=== PATIENT | male | born 1995 | race African-American/Black ===

== ENCOUNTER 2018-05-25 06:49 | Inpatient (IN) ==
[~2018-05-25 06:49] MED LIST: EPINEPHRINE SYRINGE ONE; NS ONE; SODIUM BICARBONATE 8.4% ONE
[2018-05-25] MEDS ORDERED: EPINEPHRINE 4 MG in NS 250 ML IV SCH (07:00)
--- NOTE | 2018-05-25 07:25 | PROVIDER DOCUMENTATION ---
HPI-General Adult - General Stated Complaint: FULL ARREST Time Seen by Provider: 05/25/18 07:10 Source: family, EMS Allergies/Adverse Reactions: Patient Allergies Allergy/AdvReac Type Severity Reaction Status Date / Time No Known Allergies Allergy Verified 05/25/18 08:55 - History of Present Illness -Gen Adult Nature of Presenting Problems: Pt found after hanging himself, pt was last seen normal at 5:45a, taken down from the rope at 6a, CPR was started shortly thereafter, no pulses in the field , pt got 4 epi and bicarb in the field, pt given epi, bicarb and ca here, good glucose, got ROSC, skip airway replaced with 8-0 tube, pt placed in collar, pt started on epi drip, family spoken to, will admit to ICU Location of Pain/Injury: reports: none Pain Radiation: reports: no radiation Quality of Pain: reports: none Onset/Duration: reports: unsure Timing: reports: still present Context/Activities at Onset: reports: none Modifying Factors: improves with: nothing Associated Symptoms: reports: denies symptoms Similar Symptoms Previously?: No Recently seen or treated by another doctor?: No Review of Systems - Adult - REVIEW OF SYSTEMS - ADULT ROS:: unobtainable per condition (arrest, intubated) Constitutional: reports: see HPI Eyes: reports: see HPI Ears, Nose, Mouth & Throat: reports: see HPI Cardiovascular: reports: see HPI Respiratory: reports: see HPI Gastrointestinal: reports: see HPI Genitourinary: reports: see HPI Musculoskeletal: reports: see HPI Integumentary: reports: see HPI Neurological: reports: see HPI Psychiatric: reports: see HPI Endocrine: reports: see HPI Hematologic/Lymphatic: reports: see HPI Allergic/Immunologic: reports: see HPI Past History - Adult - PAST MEDICAL HISTORY-ADULT Review of Records: reports: Nursing Assessment Review Major Childhood Illnesses: reports: denies history Cardiovascular: reports: denies history Respiratory: reports: denies history Gastrointestinal: reports: denies history Obstetrical/Gynecological: reports: denies history Genitourinary: reports: denies history Musculoskeletal: reports: denies history Neurological: reports: denies history Endocrine/Immune: reports: denies history Other Conditions: reports: denies history - PRIOR SURGERIES/PROCEDURES Surgical/Procedure History: reports: none - IMMUNIZATION STATUS Childhood Immunizations: See Nurse Assessment Flu Vaccine: See Nurse Assessment - FAMILY HISTORY Family History: reviewed, not pertinent Physical Exam-General - PHYSICAL EXAM-ADULT Initial Vital Signs Reviewed: Yes - CONSTITUTIONAL General Appearance: severe distress - EYES Eyes: other (eye closed, pupils fixed and dilated) - HEAD, EARS, NOSE, MOUTH & THROAT HENMT: normocephalic/atraumatic - NECK Neck: normal inspection - RESPIRATORY Respiratory: chest non-tender, other (BS equal with bagging) - CARDIOVASCULAR Cardiovascular: normal peripheral pulses (ROSC achieved) - GASTROINTESTINAL (ABDOMEN) Abdominal Exam: normal bowel sounds - LYMPHATIC Lymphatic: no adenopathy - MUSCULOSKELETAL Back Exam: normal inspection Extremity: normal inspection - SKIN Integumentary: normal color - NEUROLOGIC Neurologic: other (unresponsive) - PSYCHIATRIC Psych/Mental Status: other (unresponsive) Progress - PLAN OF CARE/RESULTS Progress/Plan/Lab Results: Orders Category Date Time Status ABG [RESP] Stat Lab 05/25/18 07:18 Ordered CBC WITH ELECTRONIC DIFF [HEME] Stat Lab 05/25/18 07:12 Uncollected COMPREHENSIVE METABOLIC PANEL [CHEM] Stat Lab 05/25/18 07:12 Uncollected LACTATE, PLASMA [CHEM] Stat Lab 05/25/18 07:17 Uncollected LIPASE [CHEM] Stat Lab 05/25/18 07:17 Uncollected TROPONIN T Stat Lab 05/25/18 07:12 Uncollected 0.9% Sodium Chloride Inj [Ns] 250 ml Med 05/25/18 08:00 Active Epinephrine 4 mg IV As Directed Result Diagrams: 05/25/18 07:15 05/25/18 07:15 - CONSULTS/PCP/HOSPITALIST Notification #1 *Consult/PCP/Hospitalist*: Dr Sevilla Time Discussed: 09:00 Consult Disposition: Will see in ED (Dr Sevilla came to [facility] to see pt and spoke to family. Plan is to admit.) Departure - Departure Date of Disposition Decision: 05/25/18 Time of Disposition Decision: 09:01 DIAGNOSIS: Suicide attempt Disposition: ADMITTED INPATIENT 09 Certified Medical Emergency: Emergent Condition: Critical Referrals and Follow-Ups: None,PCP [Primary Care Provider] - - Critical Care Note This patient required my direct & personal management of CC.: Yes Attestation - Physician/ ELIER Attestation Patient care was provided by Advanced Practice Provider:: No The physician spent face to face time with patient:: Yes Advanced Practice Provider documentation review:: Supervising physician onsite and consulted in the evaluation and care of this patient. The physician did have a face to face encounter with the patient.
[2018-05-25] MEDS ORDERED: NS 2,000 ML ONE (07:29)
--- NOTE | 2018-05-25 07:31 | Diag Imaging Result Doc PS360 ---
CHEST-PORTABLE - 05/25/2018 INDICATION: cardiac COMPARISON: 02/21/2018 FINDINGS: There is an endotracheal tube in good position at T3. There is a nasogastric tube in good position the stomach. Lung volumes are low. No infiltrates or edema. Heart size is top normal. IMPRESSION: No acute disease or complication. Electronically signed by John Edwards 05/25/2018 7:29 AM
[2018-05-25 07:37] LABS: BASO# 0.04 X1000 (0.0-0.2); BASO% 0.6 % (0.0-0.8); EOS# 0.09 X1000 (0.0-0.7); EOS% 1.3 % (0.0-10.0); HEMATOCRIT 44.3 % (42.0-52.0); HEMOGLOBIN 13.6 g/dL (14.0-18.0); IMM GRAN% 1.4 % (0.0-0.5); LYMPH# 5.39 X1000 (1.2-3.4); LYMPH% 77.4 % (20.5-51.1); MCH 28.5 PG (27-31); MCHC 30.7 g/dL (33-37); MCV 92.9 FL (81-99); MONO% 7.2 % (1.7-9.3); MPV 10.4 FL (7.4-10.4); NEUT# 0.84 X1000 (1.4-6.5); NEUT% 12.1 % (42.2-75.2); PLT 209 X1000 (130-400); RBC 4.77 XMIL (4.7-6.1); RDW 12.4 % (11.5-14.5); WBC 6.96 X1000 (4.8-10.8)
[2018-05-25] MEDS ORDERED: NS 1,000 ML IV ONE ×2 (07:53→07:54)
[2018-05-25 07:56] LABS: ALB/GLOB RATIO 1.4; ALBUMIN 3.8 g/dL (3.5-5.0); CALCIUM 10.8 mg/dL (8.8-10.2); CREATININE 1.8 mg/dL (0.7-1.2); TOTAL BILIRUBIN 0.51 mg/dL (0.20-1.00); TOTAL PROTEIN 6.5 g/dL (6.3-8.3)
--- NOTE | 2018-05-25 08:00 | Diag Imaging Result Doc PS360 ---
EXAM: CT HEAD/C-SPINE W/O CONTRAST INDICATION: head injury/pain TECHNIQUE: This exam was performed using automated exposure control, adjustment of mA or kV according to patient size, and/or use of iterative reconstruction technique. COMPARISON: Head CT dated 04/13/2014 FINDINGS: Head: There is no definite acute infarct given the limited sensitivity of CT versus MRI. There is no discrete intracranial mass, mass effect, or intracranial hemorrhage. There is a small sphenoid sinus mucus retention cyst and a tiny left ethmoid sinus mucus retention cyst. Surrounding soft tissues and bony structures are essentially unremarkable, otherwise. The calvaria is intact. C-spine: The central canal appears to be grossly patent. There is no discrete fracture, subluxation, or intrinsic osseous lesion. The surrounding soft tissues are essentially unremarkable. IMPRESSION: 1.No evidence of acute intracranial pathology. 2.No evidence of fracture or other definite acute C-spine injury. Electronically signed by Gabe Pham 05/25/2018 7:58 AM
[2018-05-25 08:08] LABS: ALLEN TEST YES; BLOOD TYPE ARTERIAL; HCO3-(ACT) 10.1 mmoll (20.0-26.0); METHB 0.8 % (0.0-1.5); PO2(98.6) 465 mmHg (60-100); SAMPLE BLOOD; SAO2 100.8 % (95.0-100.0); SRATE 15 BPM; THB 13.9 g/dL (11.5-17.4); TVOL 400 mL
[2018-05-25 08:10] LABS: MODALITY VENTILATOR; PCO2(98.6) 62 mmHg (35-45); pH(98.6) 6.95 (7.35-7.45)
[2018-05-25] MEDS ORDERED: SODIUM BICARBONATE 8.4% IV ONE ×2 (08:10→08:24)
[2018-05-25 08:27] LABS: MAGNESIUM 2.9 mg/dL (1.5-2.7); PHOSPHORUS 14.9 mg/dL (2.7-4.5)
[2018-05-25 08:43] LABS: CK-MB 3.88 ng/mL (0.0-5.0)
[2018-05-25 08:46] LABS: UR AMPHETAMINES QUAL NONE DETECTED (NONE DETECT); UR BARBITUATES QUAL NONE DETECTED (NONE DETECT); UR BENZODIAZEPIN QUAL NONE DETECTED (NONE DETECT); UR CANNABINOIDS QUAL PRESUMPTIVE POSITIVE (NONE DETECT); UR COCAINE QUAL NONE DETECTED (NONE DETECT); UR METHADONE QUAL NONE DETECTED (NONE DETECT); UR OPIATES QUAL PRESUMPTIVE POSITIVE (NONE DETECT); UR OXYCODONE QUAL NONE DETECTED (NONE DETECT); UR PCP QUAL NONE DETECTED (NONE DETECT)
[2018-05-25] MEDS ORDERED: ZOFRAN IV PRN (09:10)
[2018-05-25] MEDS ORDERED: TYLENOL PO PRN (09:10)
--- NOTE | 2018-05-25 09:27 | EKG Report ---
Test Performed on : 05/25/2018 08:01:47 AM Test Reason : post arrest Blood Pressure : / mmHG Vent. Rate : 097 BPM Atrial Rate : 097 BPM P-R Int : 148 ms QRS Dur : 084 ms QT Int : 388 ms P-R-T Axes : 037 056 042 degrees QTc Int : 492 ms Normal sinus rhythm. Prolonged QT Abnormal ECG When compared with ECG of 21-FEB-2018 19:17, Vent. rate has increased BY 36 BPM Nonspecific T wave abnormality no longer evident in Lateral leads QT has lengthened Unconfirmed Result
--- NOTE | 2018-05-25 09:31 | HISTORY AND PHYSICAL ---
HISTORY OF PRESENT ILLNESS: Mr. Hernandez was found by his mother who apparently heard a thud and found that he had tried to hang himself, not sure how long he had been up there, but at least 30 minutes is their estimation. He was unresponsive. They called the paramedics and brought him here to the emergency room. He was intubated. Blood pressure initially low. Pupils are dilated and fixed. Apparently 30 minutes were done of CPR and finally he had a complex. He appears to be in normal rhythm. He is off pressors at the present time with blood pressure running systolic above 180. I have given him some fluid. He has an interosseous access on the right shoulder and a Brown catheter. I do not have much in the way of history. His family was there, mostly cousins. They did not share any details of what is going on in his personal life. PHYSICAL EXAMINATION: VITAL SIGNS: Pulse 127, respirations 20, blood pressure at present time 208/143. HEENT: Pupils are about 3 mm and appear fixed. NEUROLOGICAL: He does not respond to touch. No movement with Babinski. I do not see any sign of posturing at this time or examination. LUNGS: Clear anterior lateral. CARDIOVASCULAR EXAM: Regular rhythm and rate. He has sinus tachycardia. ABDOMEN: Soft. EXTREMITIES: I do not see any pedal edema. LABORATORY DATA: White blood cell count 6960, hematocrit 44, platelet count 209,000. Sodium 152, potassium 5.0, chloride 100, BUN 19, creatinine 1.8. Phosphorus 14.9, calcium 10.8, magnesium 2.9, AST 1661, ALT 2186, alkaline phosphatase 84. CK 399, troponin less than 0.01. Urine screen presumptive positive for opiates and cannabinoids. Blood gas after intubation: pH 6.95, pCO2 62, PO2 465, O2 saturation 100%. He is on the ventilator. Rate is 15, FiO2 100%, tidal volume 400, PEEP is 5. DIAGNOSTIC STUDIES: Chest x-ray: No acute disease. No sign of infiltrate. CT head and cervical spine: No evidence of acute intracranial bleed or pathology. The cervical spine shows no evidence of fracture. ASSESSMENT AND PLAN: 1. Suicide attempt, strangulation, tried to hang himself. Concern about overwhelming anoxic injury. I have discussed with family the prognosis is very poor. We will keep him on the ventilator and try and hyperventilate him, and see if we can help with the brain swelling. Will ask Dr. Mary to assist and ask Neurology to be involved as well. Will give him intravenous fluids, support his blood pressure, and in the next 24to 48 hours I think will define whether his brain is going to swell and have more complications. Family understands it is a very grim prognosis. 2. Opioid and cannabinoids in his urine drug screen. 3. I do not have any past medical history. It appears that his nutrition has been good. I do not have any list of medications he was taking at home. cc: Will Mora MD
[2018-05-25] MEDS ORDERED: TYLENOL PR PRN (09:49)
[2018-05-25] MEDS ORDERED: FENTANYL IV ONE (10:00)
[2018-05-25] MEDS ORDERED: SODIUM PHOSPHATE 10 MMOL in NS 250 ML IV PRN (10:00)
[2018-05-25] MEDS ORDERED: POTASSIUM CHLORIDE 60 MEQ in NS 500 ML IV PRN (10:00)
[2018-05-25] MEDS ORDERED: POTASSIUM CHLORIDE 40 MEQ in NS 250 ML IV PRN (10:00)
[2018-05-25] MEDS ORDERED: SODIUM PHOSPHATE 20 MMOL in NS 250 ML IV PRN (10:00)
[2018-05-25] MEDS ORDERED: MAGNESIUM SULFATE 2 GM in STERILE WATER INJ. 50 ML IV PRN (10:00)
[2018-05-25] MEDS ORDERED: NITROGLYCERIN 50 MG/D5W 50 MG/250 ML IV.SOLN IV SCH (10:00)
[2018-05-25] MEDS: FENTANYL 1,000 MICROGM in NS 80 ML IV SCH (10:10)
[2018-05-25] MEDS: NIMBEX 80 MG in NS 160 ML IV SCH ×2 (10:10→22:12)
[2018-05-25] MEDS: ATIVAN IV SCH ×4 (10:11→21:47)
[2018-05-25] MEDS: NS 1,000 ML IV SCH ×2 (10:16→17:47)
[2018-05-25] MEDS: PEPCID IV SCH ×2 (10:24→21:47)
[2018-05-25] MEDS: LOVENOX SUBQ SCH ×3 (10:24→21:47)
[2018-05-25] MEDS: SODIUM CHLORIDE 0.9% INJ SCH ×2 (10:27→21:47)
[2018-05-25] MEDS: LACRI-LUBE OPH OINT BOTH EYES SCH ×3 (10:37→21:47)
[2018-05-25 10:38] LABS: INR 1.15; PROTIME 15.7 Seconds (11.0-16.0)
[2018-05-25 10:39] LABS: PHOSPHORUS 7.1 mg/dL (2.7-4.5)
[2018-05-25 10:51] LABS: AGAP 24; BUN 21 mg/dL (8-22); CALCIUM 7.8 mg/dL (8.8-10.2); CHLORIDE 106 mmol/L (98-107); COSMO 295; CREATININE 1.6 mg/dL (0.7-1.2); ESTIMATED GFR > 60; GLUCOSE 167 mg/dL (70-104); POTASSIUM 4.5 mmol/L (3.5-5.1); SODIUM 145 mmol/L (136-145); TCO2 15 mmol/L (25-35)
[2018-05-25] MEDS: XOPENEX NEB INH SCH ×4 (11:25→23:10)
[2018-05-25] MEDS: ATROVENT NEB INH SCH ×4 (11:25→23:10)
[2018-05-25 11:33] LABS: ALLEN TEST YES; BE -10.1 mmoll (-3.0-3.0); BLOOD TYPE ARTERIAL; HCO3-(ACT) 16.9 mmoll (20.0-26.0); METHB 0.8 % (0.0-1.5); O2(CT) 22.1 mL/dL (15.0-23.0); O2HB 93.5 % (95.0-99.0); PCO2(98.6) 44 mmHg (35-45); PO2(98.6) 80 mmHg (60-100); SAMPLE BLOOD; SAO2 95.7 % (95.0-100.0); SRATE 20 BPM; THB 16.8 g/dL (11.5-17.4); TVOL 600 mL; pH(98.6) 7.21 (7.35-7.45)
[2018-05-25 11:36] LABS: MODALITY VENTILATOR
[2018-05-25 12:20] LABS: URINE SOURCE CATH
[2018-05-25 12:45] LABS: BILIRUBIN URINE NEGATIVE (NEGATIVE); BLOOD URINE LARGE (NEGATIVE); COLOR ORANGE; GLUCOSE URINE TRACE mg/dL (NEGATIVE); KETONE URINE TRACE mg/dL (NEGATIVE); LEUKOCYTES URINE NEGATIVE (NEGATIVE); NITRITE URINE NEGATIVE (NEGATIVE); PH URINE 5.5; PROTEIN URINE 100 mg/dL (NEGATIVE); SP GRAVITY URINE 1.007; TURBIDITY URINE TURBID (CLEAR); UROBILINOGEN URINE 2 mg/dL (NORMAL)
[2018-05-25 12:46] LABS: UR EPITHELIAL CELLS <10 /HPF (<10); URINE BACTERIA NEGATIVE /HPF; URINE RBC 20-40 /HPF (<10); URINE WBC 20-40 /HPF (<10)
[2018-05-25] MEDS ORDERED: NS 250 ML ONE (13:27)
--- NOTE | 2018-05-25 13:48 | ECHO REPORT ---
ORDER DATE: 05/25/2018 INTERPRETING PHYSICIAN: Dr. Tom Salamanca. ECHOCARDIOGRAPHIC MEASUREMENTS: 1. Interventricular septum 1.2 cm. 2. Left ventricular posterior wall 1.0 cm. 3. Diastolic diameter 5.2, left atrium 3.0 to 3.4. 4. The aortic valve leaflets are trileaflet. Mitral valve was normal. Tricuspid valve was normal. Pulmonic valve was normal. Tricuspid valve was normal next there is no aortic stenosis or regurgitation. There is trace mitral regurgitation. Mild tricuspid regurgitation. Peak velocity across the tricuspid valve was 2.7 m/sec. Pulmonary artery systolic pressure 40 mmHg. 5. Normal left ventricular cavity size with reduced systolic function. Estimated ejection fraction of 35% to 40%. 6. There is no pericardial effusion or obvious intracardiac mass or thrombus. cc: MD Brittni Villafuerte CRNP
[2018-05-25 13:53] LABS: ALLEN TEST YES; BE -11.4 mmoll (-3.0-3.0); BLOOD TYPE ARTERIAL; O2HB 97.2 % (95.0-99.0); PCO2(98.6) 38 mmHg (35-45); PO2(98.6) 115 mmHg (60-100); SAMPLE BLOOD; SAO2 99.8 % (95.0-100.0); SRATE 20 BPM; TVOL 600 mL; pH(98.6) 7.22 (7.35-7.45)
[2018-05-25 13:55] LABS: MODALITY VENTILATOR
[2018-05-25] MEDS: NS 500 ML IV SCH (14:23)
--- NOTE | 2018-05-25 14:23 | CONSULTATION ---
DATE OF CONSULTATION: 05/25/2018 REASON FOR CONSULT: Question brain injury. HISTORY OF PRESENT ILLNESS: This is a 22-year-old, -[place] Citizen male with no significant medical history who is admitted this morning after suicide attempt by hanging. History is from chart review and from discussion with the patient's aunt, with whom he lives, and other surrounding family members. Apparently, the patient seemed well the day before and there were no indications that he was having any difficulties that may lead him to take his life. He had been having some girlfriend issues and had changed jobs, but they did not feel that there was anything severe. Apparently, they found him this morning after attempting to hang himself. He had fallen onto the ground, was unresponsive. He was pulseless in the field. He was intubated, he was hypotensive. There is report that he had dilated, fixed pupils early on. He had pressors at some point. CPR had been performed for 30 minutes before return of spontaneous circulation. His toxicology was positive for opiates and cannabinoids. PAST MEDICAL HISTORY: No major illnesses. He was recently taking some Mylene Carmichaels for cough, cold symptoms. SOCIAL HISTORY: He lives with his aunt who raised him. 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 He had been working at [employer]. There were maybe some mild girlfriend issues at some point. They have not known him to take pain medication, though his toxicology was positive for both opiates and cannabinoids. FAMILY HISTORY: Noncontributory. ALLERGIES: No known drug allergies listed. HOME MEDICATIONS: Again, recently Mylene Carmichaels but no others that they are aware of. CURRENT MEDICATIONS: He has been started on hypothermic protocol and is receiving neuromuscular blockade as well as fentanyl and lorazepam. REVIEW OF SYSTEMS: Unobtainable. PHYSICAL EXAMINATION: Vital signs: He was afebrile. Currently being cooled. Blood pressure 178/89 was the first one documented here in the chart, current 189/130. Pulse 130s. Respirations 20. There was mention that he was having spontaneous breaths just prior to the hypothermic protocol being initiated. He is on the ventilator. Mr. Hernandez is supine on the bed on mechanical ventilation. Again, he has been started on hypothermic protocol and is sedated and paralyzed with this. This obvious effects the neurologic exam. Currently his pupils are 3 mm and nonreactive bilaterally. Gaze is conjugate and forward. There is no horizontal eye movements with passive head turning. No corneal reflexes. No blink to threat. no response to verbal or tactile stimulus. No adventitious movements were observed. He is not breathing over the vent at the moment. Reflexes are absent. No clonus. Plantar responses mute. DIAGNOSTICS: Head and spine CT: No evidence of acute pathology, no evidence of fracture, or other definite acute C-spine injury. Normal sodium, BUN 21, creatinine 1.6. PH 7.21, PCO2 44, PO2 80, lactate 7.3, he is on the ventilator with FIO2 of 70%. AST 1661, ALT 2186. Toxicology presumptive positive for opiates and cannabinoids. ASSESSMENT AND PLAN: Attempted suicide by hanging, pulseless in the field status post CPR and intubation. He is currently on hypothermic protocol with sedatives and paralytics, therefore, neurologic exam is significantly limited at this time. We will not know more about his neurologic status until he is rewarmed and off of sedatives and paralytics, and those have cleared. The plan is to rewarm tomorrow. Thank you for the consultation. cc: Hina Acosta MD [facility]
[2018-05-25] MEDS: NS 500 ML IV PRN ×2 (14:39→15:40)
[2018-05-25] MEDS ORDERED: VASELINE TOP PRN (15:42)
[2018-05-25 16:25] LABS: AGAP 23; BUN 27 mg/dL (8-22); CALCIUM 7.5 mg/dL (8.8-10.2); CHLORIDE 108 mmol/L (98-107); COSMO 301; CREATININE 1.6 mg/dL (0.7-1.2); ESTIMATED GFR > 60; GLUCOSE 257 mg/dL (70-104); POTASSIUM 3.8 mmol/L (3.5-5.1); SODIUM 144 mmol/L (136-145); TCO2 13 mmol/L (25-35)
[2018-05-25 16:53] LABS: CK INDEX 3.4 (0.0-2.5); CK-MB 47.43 ng/mL (0.0-5.0)
[2018-05-25] MEDS: HUMULIN R 100 UNIT in NS 100 ML IV SCH (17:23)
--- NOTE | 2018-05-25 17:24 | PULMONOLOGY CONSULTATION ---
DATE: 05/25/2018 HISTORY OF PRESENT ILLNESS: MR. Hernandez is a 22-year-old black male with no documented past medical history, who was found hanging at his place of residence. I believe he lives with his aunt. There are some cousins at the bedside who report that his mother and father are not in his life. EMS was called and CPR was initiated on the scene. Exact amount of time between notifying EMS and return of spontaneous circulation is not immediately available for review. The patient was brought to the emergency room. CT scan of the head was performed, revealed no acute changes. CT scan of the neck revealed no evidence of fracture or acute C-spine injury. The patient has been transported to the ICU and is currently being initiated on the hypothermia protocol. He is not yet paralyzed. He has spontaneous respiratory effort. He has limited pupil movement with light stimulation. He does not follow commands. PAST MEDICAL HISTORY: Patient has been seen in this emergency room for nausea and vomiting in 2015, an eye injury in 2016, and chest pain in February 2018. SOCIAL HISTORY: Not immediately available for review. FAMILY HISTORY: Not immediately available. REVIEW OF SYSTEMS: Cannot be obtained. PHYSICAL EXAMINATION: Reveals a healthy appearing black male who is now on mechanical ventilation. He is sedated and paralyzed. Vital signs: Blood pressure 199/142. Heart rate 140. Respiratory rate 20. Oxygen saturation 90%. HEENT: Pupils are midpoint and nonreactive. Oropharynx appears normal without lesions. Neck is supple. Chest: Reveals coarse rhonchi bilaterally. Cardiac: Increased rate, regular rhythm. Abdomen: Soft and without bowel sounds. LABORATORY DATA: Arterial blood gas reveals pH of 6.95, PCO2 of 62, PO2 of 465, lactate 14.9. Chemistries: Sodium 145, potassium 4.5, chloride 106, bicarbonate 15, BUN 21, creatinine 1.6. Creatine kinase 1047. White blood count 6.96, hemoglobin 13.6, platelet count 209,000. IMPRESSION: A 22-year-old male with apparent suicide attempt by hanging. He was unresponsive in the ICU. He has been initiated on the hypothermia protocol. PROGNOSIS: Guarded. PLAN: 1. Continue full ventilatory support. 2. Attempt to maintain systolic blood pressure greater than 160 given the acute brain injury. 3. Attempt to maintain oxygen saturation in the 89-95, 96 range to prevent hyperoxia. 4. Maintain hypothermia for 24 hours. 5. Collect sputum for C and S. 6. Given the nature of the illness and his hypoxemia, I will initiate antibiotics for presumptive aspiration pneumonia. 7. Prognosis is guarded at this juncture. cc: Jose Mary MD
--- NOTE | 2018-05-25 18:45 | CARDIOLOGY CONSULTATION ---
DATE: 05/25/2018 REQUESTING PHYSICIANS: Hospitalist service. REASON FOR CONSULTATION: "Cardiology consultation required by hypothermic protocol." HISTORY OF PRESENT ILLNESS: Mr. Hernandez is an unfortunate 22-year-old black gentleman who attempted to commit suicide by hanging himself at home. According to his aunt, who is the next of kin, there was a time of approximately 30 minutes between the probable moment when he hanged himself and the time when the paramedics showed up to initiate CPR. The aunt was the one who pulled the rope from his neck and laid him on the ground and initiated the maneuvers of CPR. The patient's first set of blood gases that we have in the computer were drawn at 8: 05 in the morning and showed a pH of 6.95, pCO2 of 62, lactate of 14.9, pO2 of 465. That did suggest that the patient was in true circulatory arrest at that time. At any rate, they have done an EKG that showed sinus tachycardia without any acute ischemic changes at 8:01. His blood pressure right now on the monitor is 199/142, pulse is 145, temperature 95 degrees. He is on a hypothermia protocol. Respiratory rate is the ventilator rate at 12. The patient really has no significant past history. He was not taking any medication at home. He is not known to use drugs. FAMILY HISTORY: Really noncontributory. SOCIAL HISTORY: He is single and was living with his aunt since the age of 5. He has a sister who left the house about 3 years ago. The patient's mother about 3 years ago also. The father is unknown. The patient had been working at [employer] night shifts, and then about a week ago he started working for [employer]. The aunt cannot think of any medical condition that he may have had in the past. PHYSICAL EXAMINATION: General: Right now he is intubated. He is wrapped up with blankets for the hypothermia protocol. He does not have any spontaneous movements. Pupils are fixed. Respiratory: Breath sounds are symmetrical. Cardiovascular: Heart sounds are regular and rhythmic, tachycardic. Abdomen: Soft. Bowel sounds diminished. Extremities: Show good distal pulses. No edema. Neurologic: He is unresponsive. No reflexes noted. LABORATORIES: Chemistry: Sodium 145, potassium 4.5, BUN 21, creatinine 1.6. Hematology: Hemoglobin is 13.6, hematocrit 44.3, white cell count 6160. IMPRESSION: A patient who has suffered cardiocirculatory arrest from strangulation and anoxic brain injury. The patient has no preexisting cardiac conditions, and his EKG does not indicate that he carries any cardiomyopathy or acute ischemic process. He has significant hypertension that is probably reactive to systemic hypoxia. RECOMMENDATIONS: At this point in time, I really do not have any specific suggestions. The patient is more than likely going to evolve into multiorgan failure, given the time frame of more than 2 hours from the moment of the hanging until his vital signs were reestablished. We will intervene only if there is an obvious change in cardiac status. cc: Tyrone Carrero MD MTDD
[2018-05-25 19:43] LABS: BASO# 0.03 X1000 (0.0-0.2); BASO% 0.1 % (0.0-0.8); EOS# 0.01 X1000 (0.0-0.7); HEMATOCRIT 52.1 % (42.0-52.0); IMM GRAN# 0.12 X1000 (0.0-0.04); IMM GRAN% 0.5 % (0.0-0.5); LYMPH# 1.76 X1000 (1.2-3.4); LYMPH% 7.9 % (20.5-51.1); MCH 28.1 PG (27-31); MCHC 32.6 g/dL (33-37); MCV 86.3 FL (81-99); MONO# 1.19 X1000 (0.11-0.59); MONO% 5.3 % (1.7-9.3); MPV 9.7 FL (7.4-10.4); NEUT# 19.27 X1000 (1.4-6.5); NEUT% 86.2 % (42.2-75.2); PLT 270 X1000 (130-400); RBC 6.04 XMIL (4.7-6.1); WBC 22.38 X1000 (4.8-10.8)
[2018-05-25 19:46] LABS: INR 1.52; PROTIME 19.5 Seconds (11.0-16.0)
[2018-05-25 20:00] LABS: BANDS 12 % (0-1); LYMPHS 7 % (21-51); MONO 4 % (1-9); SEGS 77 % (42-75)
[2018-05-25 20:13] LABS: ALLEN TEST YES; BE -14.4 mmoll (-3.0-3.0); BLOOD TYPE ARTERIAL; HCO3-(ACT) 13.4 mmoll (20.0-26.0); METHB 0.5 % (0.0-1.5); O2(CT) 21.9 mL/dL (15.0-23.0); O2HB 90.2 % (95.0-99.0); PCO2(98.6) 44 mmHg (35-45); PO2(98.6) 69 mmHg (60-100); SAMPLE BLOOD; SAO2 92.2 % (95.0-100.0); SRATE 20 BPM; THB 17.3 g/dL (11.5-17.4); TVOL 600 mL
[2018-05-25 20:16] LABS: MODALITY VENTILATOR; pH(98.6) 7.13 (7.35-7.45)
[2018-05-25 20:25] LABS: MAGNESIUM 2.2 mg/dL (1.5-2.7); PHOSPHORUS 5.2 mg/dL (2.7-4.5)
[2018-05-26 00:06] LABS: ESTIMATED GFR > 60
[2018-05-26 00:08] LABS: AGAP 22; BUN 29 mg/dL (8-22); CALCIUM 7.7 mg/dL (8.8-10.2); CHLORIDE 109 mmol/L (98-107); COSMO 302; CREATININE 1.7 mg/dL (0.7-1.2); GLUCOSE 241 mg/dL (70-104); POTASSIUM 3.7 mmol/L (3.5-5.1); SODIUM 145 mmol/L (136-145); TCO2 14 mmol/L (25-35)
[2018-05-26] MEDS: NS 1,000 ML IV SCH ×2 (01:41→09:11)
[2018-05-26] MEDS: ATIVAN IV SCH ×5 (01:42→17:40)
[2018-05-26] MEDS: ZOSYN 3.375 GM in NS 50 ML IV SCH ×4 (01:42→19:28)
[2018-05-26 02:20] LABS: ALLEN TEST YES; BE -13.2 mmoll (-3.0-3.0); BLOOD TYPE ARTERIAL; HCO3-(ACT) 14.6 mmoll (20.0-26.0); METHB 0.8 % (0.0-1.5); O2(CT) 23.1 mL/dL (15.0-23.0); O2HB 96.6 % (95.0-99.0); PCO2(98.6) 34 mmHg (35-45); PO2(98.6) 102 mmHg (60-100); SAMPLE BLOOD; SAO2 98.5 % (95.0-100.0); SRATE 26 BPM; TVOL 600 mL; pH(98.6) 7.21 (7.35-7.45)
[2018-05-26 02:22] LABS: MODALITY VENTILATOR
[2018-05-26] MEDS: FENTANYL 1,000 MICROGM in NS 80 ML IV SCH (02:37)
[2018-05-26] MEDS: ATROVENT NEB INH SCH ×6 (03:25→23:18)
[2018-05-26] MEDS: XOPENEX NEB INH SCH ×6 (03:25→23:18)
[2018-05-26] MEDS: LACRI-LUBE OPH OINT BOTH EYES SCH ×3 (04:33→15:48)
[2018-05-26 06:15] LABS: ESTIMATED GFR > 60
[2018-05-26 06:20] LABS: AGAP 13; BUN 30 mg/dL (8-22); CHLORIDE 113 mmol/L (98-107); COSMO 292; CREATININE 1.6 mg/dL (0.7-1.2); GLUCOSE 186 mg/dL (70-104); POTASSIUM 3.2 mmol/L (3.5-5.1); SODIUM 141 mmol/L (136-145); TCO2 15 mmol/L (25-35)
--- NOTE | 2018-05-26 07:23 | EKG Report ---
Test Performed on : 05/26/2018 06:38:40 AM Test Reason : chest pain Blood Pressure : / mmHG Vent. Rate : 123 BPM Atrial Rate : 123 BPM P-R Int : 158 ms QRS Dur : 080 ms QT Int : 328 ms P-R-T Axes : 068 060 046 degrees QTc Int : 469 ms Sinus tachycardia. Possible Left atrial enlargement Borderline ECG When compared with ECG of 25-MAY-2018 08:01, (Unconfirmed) No significant change was found Confirmed by Abby TOM, Will Richardson ([id number]) on 05/26/2018 5:56:30 PM
--- NOTE | 2018-05-26 07:44 | Diag Imaging Result Doc PS360 ---
EXAM: CHEST-PORTABLE 05/26/2018 HISTORY: post code/hyperthermia protocol TECHNIQUE: AP portable at 0511 COMMENT: There is an endotracheal tube with its tip at the thoracic inlet. There is an NG tube with its tip below the diaphragm. There is alveolar pulmonary edema which has worsened since the previous study of 05/25/2018. The heart size and pulmonary vascularity are within normal limits. IMPRESSION: Worsening pulmonary edema. Electronically signed by Joseph Stock 05/26/2018 7:42 AM
[2018-05-26 07:49] LABS: INR 1.39; PROTIME 18.1 Seconds (11.0-16.0)
[2018-05-26 07:57] LABS: BASO# 0.01 X1000 (0.0-0.2); BASO% 0.1 % (0.0-0.8); HEMATOCRIT 53.3 % (42.0-52.0); HEMOGLOBIN 17.7 g/dL (14.0-18.0); IMM GRAN# 0.03 X1000 (0.0-0.04); IMM GRAN% 0.2 % (0.0-0.5); LYMPH# 1.04 X1000 (1.2-3.4); LYMPH% 8.4 % (20.5-51.1); MCHC 33.2 g/dL (33-37); MCV 84.2 FL (81-99); MONO# 0.55 X1000 (0.11-0.59); MONO% 4.4 % (1.7-9.3); MPV 9.9 FL (7.4-10.4); NEUT# 10.74 X1000 (1.4-6.5); NEUT% 86.9 % (42.2-75.2); PLT 141 X1000 (130-400); RBC 6.33 XMIL (4.7-6.1); WBC 12.37 X1000 (4.8-10.8)
[2018-05-26 08:06] LABS: MAGNESIUM 1.9 mg/dL (1.5-2.7); PHOSPHORUS 2.3 mg/dL (2.7-4.5)
[2018-05-26 08:12] LABS: LYMPHS 9 % (21-51); MONO 4 % (1-9); SEGS 87 % (42-75)
[2018-05-26] MEDS ORDERED: LASIX IV ONE (08:48)
[2018-05-26 08:49] LABS: ALLEN TEST YES; BE -9.5 mmoll (-3.0-3.0); BLOOD TYPE ARTERIAL; HCO3-(ACT) 17.5 mmoll (20.0-26.0); METHB 0.9 % (0.0-1.5); O2(CT) 23.1 mL/dL (15.0-23.0); O2HB 96.3 % (95.0-99.0); PCO2(98.6) 33 mmHg (35-45); PO2(98.6) 94 mmHg (60-100); SAMPLE BLOOD; SAO2 98.4 % (95.0-100.0); SRATE 26 BPM; TVOL 600 mL; pH(98.6) 7.29 (7.35-7.45)
[2018-05-26 08:50] LABS: MODALITY VENTILATOR
[2018-05-26] MEDS: HUMULIN R 100 UNIT in NS 100 ML IV SCH (08:55)
--- NOTE | 2018-05-26 09:15 | PROGRESS NOTE ---
DATE: 05/26/2018 SUBJECTIVE: Mr. Hernandez is on the hypothermia protocol on the ventilator. Blood pressures have been running 164-200/107-121. OBJECTIVE: HEENT: Pupils are equal. They do seem to be reactive. CVP less than 6 cm. Lungs: Clear anterior lateral. Cardiovascular exam: Regular rhythm and rate without murmur or S3. Abdomen: Soft. Skin: Warm and dry. Extremities: No pedal edema at this time. Intubated. Urine output was over 3 L. LAB: From this morning, white count has come down to 12,370, hematocrit 53, platelet count 141,000. Chemistry: Sodium 141, potassium 3.2, chloride 113. BUN 30, creatinine 1.6 (it was 1.7 yesterday). Troponin was 1.150. ASSESSMENT AND PLAN: A suicide attempt with attempting to hang himself; severe anoxic injury. Continue supportive care and hypothermia protocol. We will see if things can improve. Blood pressure a little on the high side. We will tolerate a little higher pressures at this time. cc: Will Mora MD
[2018-05-26] MEDS: SODIUM CHLORIDE 0.9% INJ SCH (09:21)
[2018-05-26] MEDS: PEPCID IV SCH (09:21)
[2018-05-26] MEDS: LOVENOX SUBQ SCH ×2 (09:21→10:12)
[2018-05-26] MEDS: SODIUM BICARBONATE 8.4% 75 MEQ in D5W 1,000 ML IV SCH ×2 (10:33→20:41)
[2018-05-26] MEDS: LEVOPHED 8 MG in D5 1/2 NS 250 ML IV SCH ×2 (11:13→22:14)
[2018-05-26] MEDS ORDERED: LR 1,000 ML IV ONE ×5 (11:43→21:18)
[2018-05-26] MEDS ORDERED: LR 1,000 ML ONE (12:07)
[2018-05-26] MEDS: NIMBEX 80 MG in NS 160 ML IV SCH (12:18)
[2018-05-26 12:22] LABS: AGAP 17; BUN 30 mg/dL (8-22); CALCIUM 8.6 mg/dL (8.8-10.2); CHLORIDE 112 mmol/L (98-107); COSMO 295; CREATININE 1.6 mg/dL (0.7-1.2); ESTIMATED GFR > 60; GLUCOSE 108 mg/dL (70-104); POTASSIUM 3.8 mmol/L (3.5-5.1); SODIUM 145 mmol/L (136-145); TCO2 16 mmol/L (25-35)
[2018-05-26] MEDS: NS 500 ML IV SCH (13:53)
[2018-05-26 14:26] LABS: ALLEN TEST YES; BE -5.2 mmoll (-3.0-3.0); BLOOD TYPE ARTERIAL; HCO3-(ACT) 20.8 mmoll (20.0-26.0); O2(CT) 22.6 mL/dL (15.0-23.0); O2HB 95.1 % (95.0-99.0); PCO2(98.6) 28 mmHg (35-45); PO2(98.6) 74 mmHg (60-100); SAMPLE BLOOD; SRATE 26 BPM; THB 16.9 g/dL (11.5-17.4); TVOL 600 mL; pH(98.6) 7.41 (7.35-7.45)
[2018-05-26 14:27] LABS: MODALITY VENTILATOR
--- NOTE | 2018-05-26 15:21 | PULMONOLOGY PROGRESS NOTE ---
DATE: 05/26/2018 SUBJECTIVE: The patient is sedated and paralyzed. He is on mechanical ventilation. OBJECTIVE: Current temperature 92.7 degrees. Blood pressure 163/133. Heart rate 126. Respiratory rate 26. Oxygen saturation 96% on 40% FIO2. HEENT: Pupils are faintly reactive. Oropharynx appears clear. Neck is supple. Chest reveals coarse rhonchi bilaterally. Cardiac exam: Increased rate. Regular rhythm. Abdomen: Soft. Extremities: Reveal 1 + peripheral edema. LABORATORY: Chest x-ray reveals increasing pulmonary edema. White blood count 12.37, hemoglobin 13.7, platelet count 141. Chemistries: Sodium 145, potassium 3.8, chloride 112 , bicarbonate 16, anion gap is 17, BUN 30, creatinine 1.6, glucose 108. Arterial blood gas: pH 7.29, PCO2 33, PO2 94 with a lactate 3. IMPRESSION: A 22-year-old with attempted suicide by hanging. He sustained a cardiopulmonary arrest. He has acute hypoxemic respiratory failure. He currently remains on the hypothermia protocol. RECOMMENDATIONS: 1. Continue full ventilatory support. 2. Complete hypothermia protocol. 3. Continue to maintain systolic blood pressure greater than 150 given acute brain injury. 4. Prognosis is guarded. Time spent critical care: 30+ minutes cc: Jose Mary MD MTDD
[2018-05-26 15:25] LABS: TOTAL BILIRUBIN 1.06 mg/dL (0.20-1.00)
[2018-05-26 15:25] LABS: AGAP 15; BUN 29 mg/dL (8-22); CALCIUM 8.4 mg/dL (8.8-10.2); CHLORIDE 113 mmol/L (98-107); COSMO 297; CREATININE 1.5 mg/dL (0.7-1.2); ESTIMATED GFR > 60; GLUCOSE 137 mg/dL (70-104); POTASSIUM 3.6 mmol/L (3.5-5.1); SODIUM 145 mmol/L (136-145); TCO2 17 mmol/L (25-35)
[2018-05-26 15:26] LABS: ALBUMIN 3.6 g/dL (3.5-5.0); DIRECT BILIRUBIN 0.3 mg/dL (0.00-0.20); TOTAL PROTEIN 7.2 g/dL (6.3-8.3)
--- NOTE | 2018-05-26 16:18 | CARDIOLOGY PROGRESS NOTE ---
DATE: 05/26/2018 CHIEF COMPLAINT: Status post asystolic cardiac arrest. SUBJECTIVE: Mr. Hernandez remains unresponsive on the hypothermic protocol. They have just started the rewarming process. His core temperature is still 33.9 degrees Celsius. His blood pressure was somewhat low this morning, and Dr. Mary has added Levophed. Right now his blood pressure is 143/104. His pulse is 125. He had a 12-lead EKG done today which shows sinus tachycardia without any ischemic changes. Echocardiogram done yesterday reported by Dr. Salamanca suggested that his ejection fraction was somewhat low, in the 35% to 40% range. A chest x-ray done this morning shows worsening pulmonary edema. PHYSICAL EXAMINATION: Chest: Shows symmetrical breath sounds. Cardiovascular: Heart sounds are tachycardic, regular. I do not hear a gallop or murmur. Abdomen: Firm. Bowel sounds diminished. Extremities: Show good distal pulses. Neurological: He is completely unresponsive. BLOOD WORK: White count this morning 12,370, hemoglobin 17.7. His blood gas today on a ventilator: FiO2 is 0.28, pO2 74, pCO2 28, pH 7.41. Sodium is 145, potassium 3.8, BUN 30, creatinine 1.6. LFTs have not been done today. His amylase yesterday was 685. IMPRESSION: 1. Patient who suffered asystolic cardiac arrest secondary to strangulation. The patient attempted suicide by hanging himself. 2. Decreased ejection fraction noted on echocardiogram. This may relate to global hypoxemia. 3. Acute renal dysfunction. 4. Pulmonary edema noted on chest x-ray. RECOMMENDATIONS: 1. At the current time we will continue with the hypothermic protocol. 2. Prognosis is still very ominous given his initial presentation. 3. Tomorrow they are planning to do neurological testing to see where we stand with his brain function. 4. Will follow him. cc: Tyrone Carrero MD
--- NOTE | 2018-05-26 18:16 | PROGRESS NOTE ---
DATE: 05/26/2018 SUBJECTIVE: Mr. Hernandez has started warming process, but that has not been completed. He remains sedated, ventilated with machine. EXAMINATION: On exam, there is no obvious spontaneous movement. I did not see definite lateral eye movement with passive head turning. Pupils are now large, greater than 6 mm, both round, both nonreactive to bright light. Corneal reflex is not present bilaterally. IMPRESSION: Clinical features of global encephalopathy, exam is difficult to interpret in light of sedation. Further plans will depend on his clinical course after sedatives are stopped. Thanks for asking Neurology to see Mr. Hernandez. cc: Abel Colon III, MD
[2018-05-26] MEDS ORDERED: MORPHINE IV ONE (18:34)
[2018-05-26] MEDS ORDERED: DIPRIVAN 1% 1,000 MG/100 ML BOTTLE IV SCH (19:15)
[2018-05-26 19:26] LABS: INR 1.61; PROTIME 20.4 Seconds (11.0-16.0)
[2018-05-26] MEDS ORDERED: SODIUM CHLORIDE 0.9% INJ SCH (19:30)
[2018-05-26 19:35] LABS: BASO# 0.02 X1000 (0.0-0.2); BASO% 0.1 % (0.0-0.8); HEMATOCRIT 47.8 % (42.0-52.0); HEMOGLOBIN 16.6 g/dL (14.0-18.0); IMM GRAN# 0.07 X1000 (0.0-0.04); IMM GRAN% 0.4 % (0.0-0.5); LYMPH# 1.21 X1000 (1.2-3.4); LYMPH% 6.9 % (20.5-51.1); MCH 28.2 PG (27-31); MCHC 34.7 g/dL (33-37); MCV 81.3 FL (81-99); MONO# 0.77 X1000 (0.11-0.59); MONO% 4.4 % (1.7-9.3); NEUT% 88.2 % (42.2-75.2); PLT 175 X1000 (130-400); RBC 5.88 XMIL (4.7-6.1); RDW 12.6 % (11.5-14.5); WBC 17.57 X1000 (4.8-10.8)
[2018-05-26 19:42] LABS: MAGNESIUM 1.3 mg/dL (1.5-2.7); PHOSPHORUS 2.6 mg/dL (2.7-4.5)
[2018-05-26 20:00] LABS: BANDS 37 % (0-1); LYMPHS 5 % (21-51); MONO 5 % (1-9); SEGS 48 % (42-75)
[2018-05-26] MEDS ORDERED: LOPRESSOR IV STA (20:38)
[2018-05-26] MEDS ORDERED: LOPRESSOR IV PRN ×2 (21:24→22:00)
[2018-05-26] MEDS: PITRESSIN 40 UNIT in NS 100 ML IV SCH (21:36)
[2018-05-27] MEDS ORDERED: LR 1,000 ML IV ONE (00:23)
[2018-05-27] MEDS: ZOSYN 3.375 GM in NS 50 ML IV SCH ×4 (01:12→19:57)
[2018-05-27] MEDS: LEVOPHED 8 MG in D5 1/2 NS 250 ML IV SCH ×5 (02:40→22:47)
[2018-05-27] MEDS: XOPENEX NEB INH SCH ×6 (03:45→23:30)
[2018-05-27] MEDS: ATROVENT NEB INH SCH ×6 (03:46→23:30)
[2018-05-27 04:13] LABS: ALLEN TEST YES; BE 1.1 mmoll (-3.0-3.0); BLOOD TYPE ARTERIAL; HCO3-(ACT) 25.7 mmoll (20.0-26.0); METHB 0.9 % (0.0-1.5); O2(CT) 19.3 mL/dL (15.0-23.0); PCO2(98.6) 31 mmHg (35-45); PO2(98.6) 62 mmHg (60-100); SAMPLE BLOOD; SAO2 95.2 % (95.0-100.0); SRATE 18 BPM; THB 14.8 g/dL (11.5-17.4); TVOL 700 mL; pH(98.6) 7.49 (7.35-7.45)
[2018-05-27 04:25] LABS: MODALITY VENTILATOR
[2018-05-27] MEDS: PITRESSIN 40 UNIT in NS 100 ML IV SCH ×2 (04:40→11:44)
[2018-05-27 04:57] LABS: INR 1.95; PROTIME 23.7 Seconds (11.0-16.0)
[2018-05-27 05:08] LABS: HEMATOCRIT 41.1 % (42.0-52.0); HEMOGLOBIN 14.2 g/dL (14.0-18.0); MCH 28.5 PG (27-31); MCHC 34.5 g/dL (33-37); MCV 82.5 FL (81-99); MPV 10.8 FL (7.4-10.4); RBC 4.98 XMIL (4.7-6.1); RDW 12.6 % (11.5-14.5); WBC 20.86 X1000 (4.8-10.8)
[2018-05-27 05:37] LABS: ALB/GLOB RATIO 0.8; ALBUMIN 2.5 g/dL (3.5-5.0); CALCIUM 7.8 mg/dL (8.8-10.2); CREATININE 2.2 mg/dL (0.7-1.2); MAGNESIUM 1.1 mg/dL (1.5-2.7); TOTAL BILIRUBIN 1.72 mg/dL (0.20-1.00); TOTAL PROTEIN 5.6 g/dL (6.3-8.3)
[2018-05-27] MEDS ORDERED: LOVENOX SUBQ SCH (06:00)
[2018-05-27] MEDS: SODIUM BICARBONATE 8.4% 75 MEQ in D5W 1,000 ML IV SCH ×2 (07:19→18:15)
--- NOTE | 2018-05-27 07:22 | Diag Imaging Result Doc PS360 ---
EXAM: CHEST-PORTABLE INDICATION: post code/hyperthermia protocol TECHNIQUE: One view COMPARISON: 05/26/2018 FINDINGS: Support tubes and lines are in stable positions. Pulmonary venous congestion and pulmonary edema are approximately stable. No new consolidation is identified. Cardiac silhouette is stable. IMPRESSION: Stable chest. Electronically signed by Gabe Pham 05/27/2018 7:20 AM
[2018-05-27] MEDS ORDERED: PROTONIX IV SCH (09:00)
--- NOTE | 2018-05-27 09:34 | PROGRESS NOTE ---
DATE: 05/27/2018 SUBJECTIVE: He is off sedation, really no gag reflex. His pupils appear to be fixed. No spontaneous movement of extremities. OBJECTIVE: Vital signs: He remains afebrile. Temperature 98.6 degrees, pulse 118, respirations 18, blood pressure 161/128. Eyes: His pupils are about 3 mm and appear fixed. Skin: His skin is warm and dry. Throat: No gag reflex. Lungs: Clear in all lung lopes. He is still on ventilator. Urine: Output was 1200 mL. X-RAY: Stable chest. No sign of infiltrates. ASSESSMENT AND PLAN: 1. Clinical features of global encephalopathy. Going to get a CT scan this morning. He has been through the hypothermia protocol. Appears to be poor prognosis. Will look at the CT scan. 2. The patient suffered asystolic cardiac arrest secondary strangulation. 3. Attempted suicide. 4. Decreased ejection fraction noted on echocardiogram related to global hypoxemia. 5. He has acute renal dysfunction. His creatinine is 2.2. It is today. It has gone up from 1.5. cc: Will Mora MD
--- NOTE | 2018-05-27 09:35 | Diag Imaging Result Doc PS360 ---
EXAM: CT HEAD W/O CONTRAST HISTORY: S/P Cardiac arrest TECHNIQUE: CT head without contrast COMPARISON: 05/25/2018 FINDINGS: No parenchymal hemorrhage. No epidural or subdural hematoma. No subarachnoid hemorrhage. There is diffuse cerebral edema with loss of the normal gyri. No hydrocephalus. No midline shift. IMPRESSION: Worsening cerebral edema. This report was discussed with Kael, the patient's nurse in ICU, on 05/27/2018 at 9:30 AM and was readback. This exam was performed using automated exposure control, adjustment of mA or kV according to patient size, and/or use of iterative reconstruction technique. Electronically signed by Aaron Blakely 05/27/2018 9:33 AM
--- NOTE | 2018-05-27 11:21 | PROGRESS NOTE ---
DATE: 05/27/2018 SUBJECTIVE: Mr. Hernandez has been warmed. He does not have sedatives on board at this time. CT scan without contrast this morning shows very clear evidence of diffuse cerebral edema with obliteration of the sulci and the lateral ventricles are minimally apparent. OBJECTIVE: On exam, pupils are 7 mm right, 7.5 mm left, both nonreactive to sustained bright light. Corneal reflex is not present bilaterally. There is no lateral eye movement with passive head turning. There is no spontaneous limb movement. There was no limb withdrawal in response to noxious stimulation. Neck is supple. IMPRESSION: Irreversible anoxic/ischemic brain injury. CT scan documents likely diffuse cerebral . I discussed very firmly and frankly with the family. My impression that he will not recover, that he will not survive, and that best management would be to withdraw support. Mother is the closest relative, and she understands my suggestion. Thanks for asking Neurology to see Mr. Hernandez. cc: MD ARIANE Austin III
[2018-05-27] MEDS: NS 500 ML IV SCH (14:12)
--- NOTE | 2018-05-27 14:25 | PROGRESS NOTE ---
DATE: 05/27/2018 CT scan was done of his head and worsening cerebral edema. No epidural or subdural hematoma, no subarachnoid hemorrhage, but diffuse cerebral edema with loss of normal gyri and strong risk for herniation. His pupils are fixed, no gag reflux, and so he has an irreversible anoxic brain injury. Organ donation needs a declaration that he is brain , and I feel he is, so we can proceed. I think Dr. Callaway will also render an opinion. We will proceed with extubation and proceeding towards organ donation is what the family would like. cc: Will Mora MD
[2018-05-27 17:32] LABS: ALLEN TEST YES; BE 2.3 mmoll (-3.0-3.0); BLOOD TYPE ARTERIAL; HCO3-(ACT) 26.7 mmoll (20.0-26.0); METHB 1.8 % (0.0-1.5); O2(CT) 18.8 mL/dL (15.0-23.0); O2HB 97.4 % (95.0-99.0); PCO2(98.6) 28 mmHg (35-45); PO2(98.6) 290 mmHg (60-100); SAMPLE BLOOD; SAO2 103.3 % (95.0-100.0); THB 13.2 g/dL (11.5-17.4); pH(98.6) 7.54 (7.35-7.45)
[2018-05-27 17:34] LABS: MODALITY VENTILATOR; TVOL 700 mL
[2018-05-27 17:35] LABS: SRATE 18 BPM
[2018-05-27 18:29] LABS: ALLEN TEST YES; BE 0.9 mmoll (-3.0-3.0); BLOOD TYPE ARTERIAL; HCO3-(ACT) 25.6 mmoll (20.0-26.0); METHB 1.2 % (0.0-1.5); O2(CT) 20.4 mL/dL (15.0-23.0); O2HB 97.6 % (95.0-99.0); PCO2(98.6) 48 mmHg (35-45); PO2(98.6) 359 mmHg (60-100); SAMPLE BLOOD; SAO2 99.9 % (95.0-100.0); SRATE 8 BPM; THB 14.2 g/dL (11.5-17.4); TVOL 700 mL; pH(98.6) 7.36 (7.35-7.45)
[2018-05-27 18:30] LABS: MODALITY VENTILATOR
[2018-05-27 19:38] LABS: ALLEN TEST YES; BLOOD TYPE ARTERIAL; HCO3-(ACT) 26.5 mmoll (20.0-26.0); METHB 1.2 % (0.0-1.5); O2(CT) 18.6 mL/dL (15.0-23.0); O2HB 97.6 % (95.0-99.0); PCO2(98.6) 47 mmHg (35-45); PO2(98.6) 394 mmHg (60-100); SAMPLE BLOOD; SAO2 100.1 % (95.0-100.0); SRATE 10 BPM; THB 12.8 g/dL (11.5-17.4); TVOL 700 mL; pH(98.6) 7.38 (7.35-7.45)
[2018-05-27 19:40] LABS: MODALITY VENTILATOR
[2018-05-27 20:37] LABS: ALLEN TEST YES; BE 3.9 mmoll (-3.0-3.0); BLOOD TYPE ARTERIAL; METHB 1.1 % (0.0-1.5); O2(CT) 19.1 mL/dL (15.0-23.0); O2HB 97.7 % (95.0-99.0); PCO2(98.6) 38 mmHg (35-45); PO2(98.6) 336 mmHg (60-100); SAMPLE BLOOD; SAO2 99.8 % (95.0-100.0); SRATE 14 BPM; THB 13.3 g/dL (11.5-17.4); TVOL 700 mL; pH(98.6) 7.47 (7.35-7.45)
[2018-05-27 20:39] LABS: MODALITY VENTILATOR
--- NOTE | 2018-05-27 20:58 | PROGRESS NOTE ---
DATE: 05/27/2018 Mr. Hernandez is clinically brain . Exam findings were documented in earlier note. cc: Abel Colon III, MD
[2018-05-27 21:20] LABS: ALLEN TEST YES; BE 0.4 mmoll (-3.0-3.0); BLOOD TYPE ARTERIAL; HCO3-(ACT) 24.9 mmoll (20.0-26.0); O2(CT) 15.8 mL/dL (15.0-23.0); PO2(98.6) 58 mmHg (60-100); SAMPLE BLOOD; THB 13.2 g/dL (11.5-17.4); TVOL 700 mL
[2018-05-27 21:22] LABS: MODALITY CANNULA
[2018-05-27 21:23] LABS: O2HB 85.2 % (95.0-99.0); PCO2(98.6) 89 mmHg (35-45); pH(98.6) 7.16 (7.35-7.45)
--- NOTE | 2018-05-27 22:38 | CONSULTATION ---
DATE OF CONSULTATION: 05/27/2018 I reviewed the other physicians' notes, including Dr. Colon from Neurology, the head CT scan findings, the apnea test results reported by the nursing staff francisco, and the notes of Dr. Mora and the notes from Dr. Jose Mary from earlier on. Reviewed the history and the records and the lab findings, and the patient is brain based on these findings, and also on the apnea test, the patient became apneic on the apnea test, with significant hypercarbia and deoxygenation. Also see separate progress sheet from earlier today. On examination earlier, there were no signs of brain activity including cough, gag reflex, or corneal reflexes. cc: Priscilla Callaway MD MTDD
[2018-05-28] MEDS: ZOSYN 3.375 GM in NS 50 ML IV SCH (00:44)
[2018-05-28] MEDS ORDERED: SODIUM CHLORIDE 0.9% INJ ONE (01:02)
[2018-05-28] MEDS ORDERED: SYNTHROID IV ONE (01:02)
[2018-05-28] MEDS ORDERED: SOLU-MEDROL IV ONE (01:02)
[2018-05-28] MEDS ORDERED: D5 1/2 NS 1,000 ML IV SCH (01:15)
[2018-05-28] MEDS: LEVOPHED 8 MG in D5 1/2 NS 250 ML IV SCH (01:46)
[2018-05-28] MEDS: PITRESSIN 40 UNIT in NS 100 ML IV SCH (01:47)
[2018-05-28] MEDS ORDERED: SYNTHROID 200 MICROGM in NS 500 ML IV ONE (02:00)
[2018-05-28] MEDS ORDERED: NS IV ONE (02:00)
[2018-05-28] MEDS ORDERED: SOLU MEDROL IV ONE (02:00)
[2018-05-28 02:03] VITALS: BP 164/112
[2018-05-28] MEDS: XOPENEX NEB INH SCH (03:40)
[2018-05-28] MEDS: ATROVENT NEB INH SCH (03:40)
--- NOTE | 2018-06-16 18:18 | DISCHARGE SUMMARY ---
ADMISSION DATE: 05/25/2018 DISCHARGE DATE: 05/27/2018 No primary care physician. He was found by his mother who apparently heard a thud and found him, tried to hang himself in his room I believe. Not sure along he was up there, but probably at least 30 minutes by estimation. Unresponsive, no neurologic activity. He was intubated and admitted to the hospital. They did CPR for 30 minutes with loss of telemetry monitor complex, and came back to normal rhythm. Admitted with severe hypoxemic damage and injury. He had an echocardiogram with Doppler done on 05/25/2018. Normal left ventricular cavity size. Ejection fraction 35% to 40%. His pupils were very sluggish. Cardiology evaluated. No specific suggestions, likely going into multiorgan failure. Pulmonary consultation began hypothermia protocol. He continued to show no response. Dr. Callaway, on examination, there were no signs of brain activity. Dr. Colon from Neurology. They did a head CT and it was reviewed. Apneic test results reported. Dr. Mary had reported this earlier. Family wanted to pursue taking him off the ventilator and I think they were going to pursue organ donation. The patient left critical transport to [facility] en route, that was on 05/28/2018 at 3:14. cc: Will Mora MD
== END 2018-05-27 21:33 | disposition expired | DRG 922 ==
LOC: EDBD → ED 06:49 → ICU 06:50
PROVIDERS: ATTEND Emergency Medicine
CPT/HCPCS: 31500; 36569; 51702; 70450; 71010; 71045; 72125; 80048; 80053; 80076; 80101; 80301; 80307; 80324; 80345; 80346; 80353; 80358; 80361; 80365; 81001; 82150; 82550; 82553; 82805; 82948; 83605; 83690; 83735; 83880; 83992; 84100; 84484; 85025; 85027; 85610; 85730; 87040; 87070; 87088; 87205; 93005; 93010; 93306; 94003; 94640; 96365; 96366; 99285; 99291; A9270; C9113; G0431; G0434; G0479; G0480; J0171; J1650; J1940; J2060; J2270; J2543; J2930; J3010; J3480; J7030; J7040; J7050; J7070; J7120; S0028; S0164; XXXXX